=== PATIENT | male | born 1940 | race Caucasian/White ===

== ENCOUNTER 2021-12-05 19:35 | Emergency (ER) | payer OTHER, MEDICARE ==
[2021-12-05] MEDS ORDERED: Cephalexin 500 MG Cap PO ONE (21:38)
== END 2021-12-05 21:55 | disposition home or self-care (01) ==
LOC: JD.ED 19:35
DX: N39.0 Urinary tract infection, site not specified (principal); Z86.16 Personal history of COVID-19
CPT/HCPCS: 81001; 87086; 87088; 87186; 99283; A9270